=== PATIENT | female | born 1965 | race Native Hawaiian/Other Pacific Islander ===

== ENCOUNTER 2018-08-06 15:36 | Outpatient (CLI) | payer OTHER | END 2018-08-06 23:45 | disposition home or self-care (01) | LOC: CT 15:36 | DX: R91.8 Other nonspecific abnormal finding of lung field (principal) ==

== ENCOUNTER 2019-11-02 21:33 | Emergency (ER) | payer OTHER ==
[~2019-11-02] VITALS: Ht 162.6 cm; Wt 81.6 kg
[2019-11-02 23:19] VITALS: BP 139/70; TEMP 98.9
== END 2019-11-02 23:25 | disposition home or self-care (01) ==
LOC: ED 21:33
DX: S93.692A Other sprain of left foot, initial encounter (principal); S89.82XA Other specified injuries of left lower leg, initial encounter; S80.812A Abrasion, left lower leg, initial encounter; W20.8XXA Other cause of strike by thrown, projected or falling object, initial encounter; Y92.89 Other specified places as the place of occurrence of the external cause
CPT/HCPCS: 96372; 99283; J0690; J0696; J1885

== ENCOUNTER 2019-11-13 14:39 | Outpatient (CLI) | payer OTHER ==
[2019-11-13 16:00] LABS: POTASSIUM 4.6 mmol/L (3.6-5.2)
[2019-11-13 16:09] LABS: PLATELET COUNT 588 K/uL (152-353)
== END 2019-11-13 23:18 | disposition home or self-care (01) ==
LOC: LAB 14:39
PROVIDERS: Nurse Practitioner Family
DX: E11.9 Type 2 diabetes mellitus without complications (principal)
CPT/HCPCS: 80053; 80061; 83036; 84443; 85007; 85027

== ENCOUNTER 2019-11-14 07:24 | Outpatient (CLI) | payer OTHER | END 2019-11-14 19:25 | disposition home or self-care (01) | LOC: LAB 07:24 | DX: S81.812A Laceration without foreign body, left lower leg, initial encounter (principal) | CPT/HCPCS: 87070; 87205 ==

== ENCOUNTER 2020-04-02 15:26 | Outpatient (CLI) | payer OTHER | END 2020-04-02 20:12 | disposition home or self-care (01) | LOC: LAB 15:26 | PROVIDERS: ATTEND Nurse Practitioner Family | DX: E11.9 Type 2 diabetes mellitus without complications (principal); I10 Essential (primary) hypertension; F32.9 Major depressive disorder, single episode, unspecified; F41.9 Anxiety disorder, unspecified; E78.2 Mixed hyperlipidemia | CPT/HCPCS: 80061; 82043; 83036 ==

== ENCOUNTER 2020-06-30 17:52 | Outpatient (CLI) | payer OTHER | END 2020-06-30 22:10 | disposition home or self-care (01) | LOC: LAB 17:52 | PROVIDERS: ATTEND Nurse Practitioner Family | DX: E11.9 Type 2 diabetes mellitus without complications (principal) | CPT/HCPCS: 80053; 83036 ==